=== PATIENT | male | born 1965 | race Caucasian/White ===

== ENCOUNTER → 2017-05-24 | Outpatient (CLI) | payer BC ==
[2017-05-24 11:24] LABS: BLOOD UREA NITROGEN 18 mg/dl (7-18); CALCIUM 8.7 mg/dl (8.5-10.1); CARBON DIOXIDE 30 mmol/L (21-32); CHOLESTEROL 177 mg/dl (0-200); CREATININE 1.06 mg/dl (0.60-1.40); GLUCOSE 97 mg/dl (70-99); SODIUM 138 mmol/L (136-145)
[2017-05-24 11:28] LABS: LDL CHOLESTEROL CALCULATED 116 mg/dl
== END | disposition home or self-care (01) ==
LOC: C.LABBC 08:59
PROVIDERS: ATTEND Internal Medicine
DX: E78.5 Hyperlipidemia, unspecified (principal); Z13.1 Encounter for screening for diabetes mellitus; Z12.5 Encounter for screening for malignant neoplasm of prostate

== ENCOUNTER → 2017-06-01 | Outpatient (CLI) | payer BC | END | disposition home or self-care (01) | LOC: C.LABSPEC 10:41 | PROVIDERS: ATTEND Internal Medicine | DX: R39.9 Unspecified symptoms and signs involving the genitourinary system (principal) ==

== ENCOUNTER → 2017-10-03 | Outpatient (CLI) | payer BC | END | disposition home or self-care (01) | LOC: C.LAB1850 08:01 | PROVIDERS: ATTEND Internal Medicine | DX: R39.9 Unspecified symptoms and signs involving the genitourinary system (principal) ==